=== PATIENT | male | born 1955 | race Caucasian/White ===

== ENCOUNTER → 2018-03-18 12:53 | Outpatient (CLI) | payer OTHER, SELFPAY ==
--- NOTE | 2018-03-18 12:59 | CA_ITS ---
PROCEDURE: 2-D M-mode and color Doppler study INDICATIONS FOR THE TEST: Chest pain COPD Heart Murmur Tobacco Smoking Palpitations Fatigue Syncope Edema HypertensionXDiabetes MellitusX Rheumatic Fever SOB GALICIA Obesity HyperlipidemiaX Family History HD Additional History CAD,CHRONIC AF TDS PATIENT INFORMATION HEIGHT: 71 WEIGHT:240 GENDER: Male B/P:151/92 2-D/M-MODE INTERPRETATION: 2-D MEASUREMENTS OBSERVED VALUES IN CMS Right Ventricular Dimension (RVDd) 2.8 Interventricular Septum (Thickness)(IVsd) .9 Left Ventricular Internal Dimensions(LVIDd) 5.6 Left Ventricular Posterior Wall (Thickness)(LVPWd) .9 Aortic Root 3.7 Aortic Cusp Separation 1.1 Left Atrial Dimensions (LAD) 2.6 2D 1. Technically very poor study, repeat study with better technique is recommended. 2. The left atrium is mildly enlarged, left ventricle is normal size, mild concentric left ventricular hypertrophy, visually estimated ejection fraction 55% with no regional wall motion abnormality. 3. The right atrium and right ventricle are normal size and contractility. 4. The aortic valve is thickened and calcified with moderate reduction in the leaflet mobility, 5. The mitral and tricuspid valve leaflets are minimally thickened and 6. The pulmonic valve is poorly visualized 7. No significant pericardial effusion noted. DOPPLER INTERROGATION: The maximum aortic out flow velocity is not accurately recorded study, morphologically there is moderate aortic stenosis, there is mild aortic insufficiency present, a repeat study with better Doppler technique is recommended to evaluate the severity of the aortic stenosis. There is mild tricuspid regurgitation noted, tricuspid regurgitant jet velocity is inadequate for calculation of the right ventricular systolic pressure. Diastolic parameters are inconclusive CONCLUSION: 1. Technically poor study repeat study with better Doppler technique is recommended. 2. Mildly enlarged left atrium, normal left ventricular size, mild concentric left ventricular hypertrophy, visually estimated ejection fraction 55% with no regional wall motion abnormality, diastolic parameters are inconclusive. 3. Thickened and calcified aortic valve with at least moderate aortic stenosis morphologically, this is not confirmed with Doppler Doppler interrogation, a repeat study with better technique is recommended. 4. Mild aortic, mild mitral and tricuspid regurgitation 5. No significant pericardial effusion noted.
== END ==
PROVIDERS: Visit Provider Urology
DX: Z01.818 Encounter for other preprocedural examination (principal)
CPT/HCPCS: 93306

== ENCOUNTER → 2018-10-09 14:06 | Outpatient (CLI) | payer OTHER, SELFPAY ==
[2018-10-09 17:56] LABS: Anion Gap 11.7 mEq/L (5-15); Blood Urea Nitrogen 19 mg/dL (7-18); Calcium 9.6 mg/dL (8.5-10.1); Carbon Dioxide 27 mmol/L (21.0-32.0); Chloride 104 mmol/L (98-107); Creatinine,Serum 1.57 mg/dL (0.70-1.30); Estimated Glomerular Filt Rate 45 ml/min (>60); GFR (African American) 55 ML/MIN (>60); Glucose 144 mg/dL (74-106); Potassium 4.7 mmoL/L (3.5-5.1); Sodium 138 mmol/L (136-145)
== END ==
PROVIDERS: Visit Provider Urology
DX: E11.9 Type 2 diabetes mellitus without complications (principal); E78.2 Mixed hyperlipidemia; G47.33 Obstructive sleep apnea (adult) (pediatric); I25.10 Atherosclerotic heart disease of native coronary artery without angina pectoris; I48.2 Chronic atrial fibrillation; I48.92 Unspecified atrial flutter; I49.3 Ventricular premature depolarization; I50.32 Chronic diastolic (congestive) heart failure; I50.9 Heart failure, unspecified; K21.9 Gastro-esophageal reflux disease without esophagitis; N18.2 Chronic kidney disease, stage 2 (mild); R06.09 Other forms of dyspnea; R07.89 Other chest pain; Z79.01 Long term (current) use of anticoagulants
CPT/HCPCS: 36415; 80048; 83880

== ENCOUNTER → 2018-10-17 10:23 | Outpatient (CLI) | payer OTHER, SELFPAY ==
--- NOTE | 2018-10-17 10:28 | CA_ITS ---
PROCEDURE: 2-D M-mode and color Doppler study INDICATIONS FOR THE TEST: Chest pain+ COPD Heart Murmur Tobacco Smokingex Palpitations Fatigue Syncope Edema Hypertension+Diabetes Mellitus+ Rheumatic Fever SOB=GALIICA+Obesity Hyperlipidemia+ Family History HD Additional History GERD,CHF,CHRONIC AF,CAD,CKD,DIANNA PATIENT INFORMATION HEIGHT: 71 WEIGHT:241 GENDER: Male B/P:170/101 2-D/M-MODE INTERPRETATION: 2-D MEASUREMENTS OBSERVED VALUES IN CMS Right Ventricular Dimension (RVDd) 1.9 Interventricular Septum (Thickness)(IVsd) 0.9 Left Ventricular Internal Dimensions(LVIDd) 4.7 Left Ventricular Posterior Wall (Thickness)(LVPWd) 1.3 Aortic Root 2.2 Aortic Cusp Separation 1.1 Left Atrial Dimensions (LAD) 4.1 2D 1. Left atrium is mildly enlarged, left ventricle is normal size, mild concentric left ventricular hypertrophy, visually estimated ejection fraction 55% with no regional wall motion abnormality. 2. The right atrium is mildly enlarged with normal contractility. 3. The aortic valve is thickened and calcified with mild resection the leaflet mobility. 4. The mitral and tricuspid valve leaflets are minimally thickened. 5. The pulmonic valve is poorly visualized. 6. No significant pericardial effusion noted. DOPPLER INTERROGATION: 1. The maximum aortic out flow velocity recorded study 3.2 m/s, resulting in a mean gradient across valve of 19 mmHg represents mild aortic stenosis, there is mild aortic insufficiency. 2. The mitral inflow velocities within normal range, there is no mitral stenosis, there is mild mitral regurgitation. Diastolic parameters are inconclusive. 3. Mild tricuspid regurgitation, tricuspid regurgitation jet velocity is inadequate for calculation of the right ventricular systolic pressure. CONCLUSION: 1. Mildly enlarged left atrium, normal left ventricular size, mild concentric left ventricular hypertrophy, visually estimated ejection fraction 55% with no regional wall motion abnormality, diastolic parameters are inconclusive. 2. Thickened and calcified aortic valve with mild aortic stenosis, there is mild aortic insufficiency. 3. Mild mitral and tricuspid regurgitation 4. No significant pericardial effusion noted.
--- NOTE | 2018-10-17 11:13 | NM_ITS ---
History:chest pain, short of breath, fatigue Procedure: Patient received a 0.4 mg of intravenous Lexiscan, resting heart rate 54 bpm, resting blood pressure 158/88, with Lexiscan maximum heart rate achieve was 81 bpm which is 85% of the maximum predicted heart rate and blood pressure was 120/73. With Lexiscan patient denied any complaint of chest pain. Electrocardiogram: Resting electrocardiogram showed sinus rhythm nonspecific ST-T changes, with Lexiscan there is less than 1.5mm ST segment depression noted from the baseline EKG. The EKG portion of the Lexiscan Myoview is nondiagnostic. Cardias Stress and Resting SPECT images: Cardias Stress and Resting SPECT images were obtained using technetium 99m Myoview 32.8 mCi stress and 10.55 mCi at rest. Gated SPECT further analysis of segmental wall motion and calculation of ejection fraction also done. Cardiac stress and resting SPECT show decreased tracer activity in the inferior wall which improves on the resting images suggestive of reversible ischemia, the computer derived ejection fraction is over 48% with Mild inferior wall hypokinesis, right ventricle is normal size and contractility. Conclusion: 1. The EKG portion of the Lexiscan Myoview is nondiagnostic. 2.Scintigraphic evidence of reversible ischemia involving the inferior wall is seen, computer derived ejection fraction is over 48% with segmental wall motion abnormality as described above. 3. Abnormal Lexiscan Myoview study.
--- NOTE | 2018-10-17 14:01 | HMH.ITSHM ---
Current Home Medications as stated by this patient Dane Stone or development representative. [] victoza pravastatin glimepride losartan asa xarelto
== END ==
PROVIDERS: PCP Family Medicine; Visit Provider Urology
DX: E11.9 Type 2 diabetes mellitus without complications (principal); E78.2 Mixed hyperlipidemia; I11.9 Hypertensive heart disease without heart failure; I25.10 Atherosclerotic heart disease of native coronary artery without angina pectoris; K21.9 Gastro-esophageal reflux disease without esophagitis; R06.09 Other forms of dyspnea; I50.32 Chronic diastolic (congestive) heart failure; R07.89 Other chest pain; Z79.84 Long term (current) use of oral hypoglycemic drugs
CPT/HCPCS: 78452; 93017; 93306; A9502; J2785

== ENCOUNTER → 2019-08-08 12:00 | Outpatient (CLI) | payer OTHER, SELFPAY ==
--- NOTE | 2019-08-08 | CT_ITS ---
PROCEDURE: CT CHEST WO CON CLINICAL INDICATION: Shortness of air, COPD COMPARISON: No exams were available for comparison TECHNIQUE: Axial images obtained with sagittal and coronal reformats. All CT scans at the facility use one or more dose reduction, viz: automated exposure control, ma/kV adjustment per patient size (including targeted exams where dose is matched to indication, i.e. head), or iterative reconstruction technique. FINDINGS: HEART AND MEDIASTINAL STRUCTURES: There are few small mediastinal lymph nodes. Coronary artery calcifications are present. There is a small hiatal hernia LUNGS AND PLEURAL SPACES: There is patchy ground-glass attenuation in the right upper lobe with some mild bronchial thickening and some tree-in-bud opacities. The remaining lungs are clear. No effusions. BONY STRUCTURES: There is an old right 7th and 8th rib fracture UPPER ABDOMEN: Hiatal hernia. Prior cholecystectomy ADDITIONAL FINDINGS: No other significant abnormalities. IMPRESSION: Bronchial thickening with ground-glass opacity and some tree-in-bud opacity in the right upper lobe consistent with bronchopneumonia Hiatal hernia Dictated by: Viktor Whitley MD 08/09/2019 12:55 Electronically signed by Viktor Whitley MD in [place] 08/09/2019 12:55
== END ==
PROVIDERS: PCP Family Medicine; Visit Provider Internal Medicine Sleep Medicine
DX: R06.09 Other forms of dyspnea (principal); J44.9 Chronic obstructive pulmonary disease, unspecified; G47.33 Obstructive sleep apnea (adult) (pediatric)
CPT/HCPCS: 71250; 94060; 94726; 94729

== ENCOUNTER → 2019-10-21 12:50 | Outpatient (CLI) | payer OTHER, SELFPAY ==
--- NOTE | 2019-10-21 13:35 | CA_ITS ---
APPROVED REPORT EXAM: Comprehensive 2D, Doppler, and color-flow Echocardiogram Braiding Machine Tender: Renu Humphrey CRT Ht: 5 ft 11 in Wt: 246lbs BSA: 2.30 BP: 120/84 mmHg Indications: Congestive Heart Failure, Shortness of Breath, Atrial Fibrillation, Diabetes, Obesity, Hyperlipidemia, Hypertension/HDD, GERD,, CKD, DIANNA 2D Dimensions LVOT 1.66 cm (M/F) 1.5-2.5 M-Mode Dimensions RVDd 3.54 cm (0.9-2.6) LVDd 4.54 cm (3.5-5.7) LVDs 2.93 cm (3.5-5.7) IVSd 0.97 cm (0.6-1.1) PWd 1.36 cm (0.6-1.1) EF (Teich) 65.00% FS 35.50% EDV (Teich) 94.40 mL ESV (Teich) 33.00 mL LV Diastology E/A Ratio 4.00 Aortic Valve LVOT Max 141.00 (70-110 cm/s) LVOT VTI 26.70 cm Mitral Valve MV A Velocity 31.00 (40-130 cm/s) Left Ventricle Left atrium is mildly enlarged, left ventricle is normal size, mild concentric left ventricular hypertrophy, visually estimated ejection fraction 55% with no regional wall motion abnormality, diastolic parameters are inconclusive. Right Ventricle Right atrium and right ventricle are normal size and contractility. Aortic Valve Aortic valve is thickened and calcified, there is restriction to leaflet mobility, the mean gradient across valve is 16 mmHg, the valve area is 1.2 cm??? represents moderate aortic stenosis, there is mild aortic insufficiency. Mitral Valve Mitral valve leaflets are minimally thickened, there is mild mitral regurgitation. Tricuspid Valve Tricuspid valve is grossly normal, there is mild tricuspid regurgitation, tricuspid regurgitation jet velocity is inadequate for calculation of the right ventricular systolic pressure. Pulmonic Valve Pulmonic valve is poorly visualized. Great Vessels Aortic root is normal size. Pericardium No significant pericardial effusion noted. Conclusion 1. Mildly enlarged left atrium, normal left ventricular size, mild concentric left ventricular hypertrophy, visually estimated ejection fraction 55% with no regional wall motion abnormality, diastolic parameters are inconclusive. 2. Thickened and calcified aortic valve with moderate aortic stenosis, the valve area is 1.2 cm???, there is mild aortic insufficiency. 3. Mild mitral and tricuspid regurgitation. 4. No significant pericardial effusion noted. Electronically signed by : Todd Gonzalez, 10/21/2019 18:34:20
[2019-10-24 11:20] LABS: QuantiFERON-TB Gold Plus Negative (Negative)
[2019-10-26 09:12] LABS: D001-IgE D pteronyssinus <0.10 kU/L (Class 0); D002-IgE D farinae <0.10 kU/L (Class 0); E001-IgE Cat Dander <0.10 kU/L (Class 0); E005-IgE Dog Dander <0.10 kU/L (Class 0); G002-IgE Bermuda Grass <0.10 kU/L (Class 0); G006-IgE Timothy Grass <0.10 kU/L (Class 0); I006-IgE Cockroach, German <0.10 kU/L (Class 0); Immunoglobulin E, Total 171 IU/mL (6-495); M001-IgE Penicillium chrysogen <0.10 kU/L (Class 0); M002-IgE Cladosporium herbarum <0.10 kU/L (Class 0); M003-IgE Aspergillus fumigatus <0.10 kU/L (Class 0); M006-IgE Alternaria alternata <0.10 kU/L (Class 0); T001-IgE Maple/Box Elder <0.10 kU/L (Class 0); T006-IgE Cedar, Mountain <0.10 kU/L (Class 0); T007-IgE Oak, White <0.10 kU/L (Class 0); T008-IgE Elm, American <0.10 kU/L (Class 0); T010-IgE Walnut <0.10 kU/L (Class 0); T011-IgE Maple Leaf Sycamore <0.10 kU/L (Class 0); T014-IgE Cottonwood <0.10 kU/L (Class 0); T015-IgE Ash, White <0.10 kU/L (Class 0); T022-IgE Pecan, Hickory <0.10 kU/L (Class 0); T070-IgE White Mulberry <0.10 kU/L (Class 0); W001-IgE Ragweed, Short <0.10 kU/L (Class 0); W011-IgE Thistle, Russian <0.10 kU/L (Class 0); W014-IgE Pigweed, Common <0.10 kU/L (Class 0); W016-IgE Rough Marshelder <0.10 kU/L (Class 0)
[2019-10-26 12:19] LABS: E072-IgE Mouse Urine <0.10 kU/L (Class 0)
== END ==
PROVIDERS: PCP Family Medicine; Visit Provider Internal Medicine Pulmonary Disease
DX: R06.00 Dyspnea, unspecified (principal); I50.30 Unspecified diastolic (congestive) heart failure
CPT/HCPCS: 36415; 82785; 86003; 86480; 93306

== ENCOUNTER → 2019-11-04 07:32 | Outpatient (CLI) | payer OTHER, SELFPAY ==
[2019-11-04 09:03] LABS: Coronavirus 19 IgG Antibody Negative (Negative); Coronavirus 19 IgM Antibody Negative (Negative)
== END ==
PROVIDERS: Visit Provider Internal Medicine Pulmonary Disease
DX: Z20.828 Contact with and (suspected) exposure to other viral communicable diseases (principal); R06.02 Shortness of breath; R93.89 Abnormal findings on diagnostic imaging of other specified body structures
CPT/HCPCS: 36415; 86328

== ENCOUNTER 2019-11-05 07:11 | Day surgery (SDC) | payer OTHER, SELFPAY ==
[2019-11-03 12:58] VITALS: BMI 34.2
[2019-11-05] VITALS (12 sets, daily range): BP systolic 111–142; BP diastolic 63–92; PULSE 44–61; RESP 12–18; TEMP 36.4–36.6; O2SAT 91–99
[2019-11-05 08:37] LABS: POC Glucose,Bedside 163 (70-110)
--- NOTE | 2019-11-05 11:48 | FL_ITS ---
PROCEDURE: FLUORO UP TO 1 HOUR CLINICAL INDICATION: BX Bronchoscopy biopsy COMPARISON: CT CT CHEST WO CON from 08/08/2019 FINDINGS: Two images are submitted with the C-arm showing bronchus could in place with a wire in the right mid upper chest. Fluoroscopy time: 1.9 minutes IMPRESSION: Status post bronchoscopy with fluoro guidance Dictated by: Viktor Whitley MD 11/05/2019 15:21 Viktor Whitley MD in [place] 11/05/2019 15:21
--- NOTE | 2019-11-05 11:52 | HMH.ANESCL ---
[facility] Anesthesia Checklist - Structural Data Admitted From: Home Planned Operative Procedure/s: bronchoscopy Consent for Planned Operative Procedure(s) Verified: Yes - Additional verifications Anesthesia Reactions: No Hx Blood Transfusions: No Blood Transfusion Reaction: No - Airway Assessment C-Spine Mobility Assessed: Yes TMJ Mobility Assessed: Yes Dentition: Poor Dentition - Neurological Assessment Level of Consciousness: Awake, Alert, Appropriate - Anesthesia Plan Anesthesia Risk discussed: Yes Anesthesia Plan: Verified ASA Class: III Anesthesia Type: General [facility] History I have reviewed the patient's past medical history: Yes Medical History: Reports:: Atrial Fibrillation, Congestive Heart Failure, Diabetes Mellitus Type 2, Gastroesophageal Reflux Disease(GERD), Hyperlipidemia, Hypertension Denies:: Cancer, Diabetes Mellitus Type 1, Internal Pacemaker, MRSA, Seizures *Have you ever received a pneumonia vaccine?: Yes *Have you received a flu vaccine this season?: Yes Other Medical History: Denies: Blood Transfusion Reaction Anesthesia experience/problems:: none Other Surgeries: Yes: No Previous Surgery, Cardiac Catheterization, Cholecystectomy, Hernia Repair, Sinus Surgery. No: Pacemaker Amputation: No Fractures: No - *Social History Last grade of school completed: High school graduate Smoking Status: Never smoker Alcohol Intake: never Substance Use Type: denies use *Occupational Status:: employed Housing: house Household Members: spouse *Travel in the last 8 weeks: None Family Hx:: Coronary Artery Disease, Hypertension
--- NOTE | 2019-11-05 11:53 | P.PN_ITS ---
[facility] Anesthesia Record Part I Intake, IV Amount: 1,000 Estimated blood loss (mL): 0 Urine output (mL): 0 Blood Pressure: 115/80 SaO2: 95 Pulse Rate: 58 Respiratory Rate: 12 Temperature: 97.7 F Patient is:: Drowsy, Stable Stable to PACU at:: 11:50
--- NOTE | 2019-11-05 13:40 | HMH.PROC ---
[facility] Procedure Note Procedure Note:: Bronchoscopy: Clean therapeutic bronchoscopy was advanced through the ET tube. Examined on both sides up to the subsegmental bronchi, appeared normal. Bronchoalveolar lavage was performed in the right upper lobe posterior segment. Total of 80 cc of NS instilled with a return of 25cc. Samples were sent for Bacterial Fungal and MILAD cultures along with cytopathology. Samples were not sent for Diff given inadequate return. Fluoroscopy guided transbronchial biopsies were also performed the right upper lobe, 8 pieces 8 biopsies were performed. 6 biopsy pieces were not sent for cytopathology and other 2 were sent for cultures. Patient tolerated the procedure well with no complications. We will follow the results and see the patient in clinic in 10 days.
--- NOTE | 2019-11-05 14:26 | HMH.ANESII ---
[facility] Anesthesia Record Part II Discharge Time: 12:20 Destination: Surgical Day Care (OP Surgery) PACU nurse assessment reviewed?: Yes Patient Condition:: Good Anesthesia Complications:: None Swallowing reflex intact?: Yes Cyanosis?: No Blood Pressure: 119/68 Pulse Rate: 48 Temperature: 97.9 F Mental Status: Alert & Oriented Pain level:: 0 Nausea and/or vomitting:: None Intake, IV Amount: 0
== END 2019-11-05 13:01 | disposition home or self-care (01) ==
LOC: OR 07:12
PROVIDERS: PCP Family Medicine; Visit Provider Internal Medicine Pulmonary Disease
PROC: (CPT 31624; principal; 2019-11-05 09:30)
DX: J47.1 Bronchiectasis with (acute) exacerbation (principal); J45.20 Mild intermittent asthma, uncomplicated; R93.89 Abnormal findings on diagnostic imaging of other specified body structures; I50.30 Unspecified diastolic (congestive) heart failure; I11.0 Hypertensive heart disease with heart failure; I48.91 Unspecified atrial fibrillation; E11.9 Type 2 diabetes mellitus without complications; E78.5 Hyperlipidemia, unspecified; K21.9 Gastro-esophageal reflux disease without esophagitis; Z90.49 Acquired absence of other specified parts of digestive tract; Z87.891 Personal history of nicotine dependence; Z82.49 Family history of ischemic heart disease and other diseases of the circulatory system
CPT/HCPCS: 31624; 76000; 82962; 87070; 87102; 87116; 87186; 87205; 87206; J2405; J2710

== ENCOUNTER → 2020-10-04 12:17 | Outpatient (CLI) | payer OTHER, SELFPAY | PROVIDERS: Visit Provider Internal Medicine Pulmonary Disease | DX: R06.09 Other forms of dyspnea (principal); J45.909 Unspecified asthma, uncomplicated | CPT/HCPCS: 94060; 94640; 94726; 94729 ==

== ENCOUNTER → 2021-04-04 11:04 | Outpatient (CLI) | payer OTHER, SELFPAY ==
--- NOTE | 2021-04-04 11:07 | CA_ITS ---
APPROVED REPORT EXAM: Comprehensive 2D, Doppler, and color-flow Echocardiogram Registered Radiologic Technologist: ROBIN Malone, RVS Ht: 5 ft 9 in Wt: 230lbs BSA: 2.19 BP: 159/95 mmHg Rhythm: Atrial Fibrillation Indications: Aortic stenosis, increased SOA & CP, CAD, CHF, Afib 2D Dimensions IVSd 1.04 cm M: 0.6-1.2 LVEF (Visual) 66.20 % PWd 1.03 cm M: 0.6 - 1.2 LA Volume 107.30 mL LVDd 5.00 cm M: 4.2 - 5.9 LA Volume Index [id number] mL/m2 (M/F) 16-34 LVDs 3.17 cm M: 2.5 - 4.0 Aortic Root 2.67 cm M: 3.1 - 3.7 Left Atrium 3.97 cm M: 3.0 - 4.0 LVOT 2.00 cm (M/F) 1.5-2.5 M-Mode Dimensions RVDd 2.97 cm (0.9-2.6) LA Diam 4.73 cm (1.9-4.0) LVDd 5.18 cm (3.5-5.7) Ao Diam 2.84 cm (2.0-3.7) LVDs 3.69 cm (3.5-5.7) IVSd 1.00 cm (0.6-1.1) PWd 0.96 cm (0.6-1.1) EF (Teich) 55.00% EPSs 1.53 cm FS 28.80% EDV (Teich) 128.40 mL TAPSE 1.73 (<1.7) ESV (Teich) 57.80 mL LV Diastology E Decel Time 130.00 (160-240 msec) E/A Ratio 1.44 MED E' 7.00 (< 7 cm/sec) MED A' 3.00 cm/s E'/MED E' Ratio 19.26 (>14) LAT E' 7.40 (<10 cm/sec) LAT A' 4.30 cm/s E/LAT E' Ratio 18.22 (>14) Aortic Valve LVOT Max 100.00 (70-110 cm/s) LVOT VTI 20.03 cm AoV Peak Alonso. 425.00 (50-130 cm/s) AI PHT 457.00 ms AO Peak GR. 72.40 mmHg AO Mean GR. 36.90 (<5 mmHg) AO VTI 81.63 (18-25 cm) KAYCEE (VTI) 0.77 (2.5-4.5 cm2) Mitral Valve MV A Velocity 93.00 (40-130 cm/s) E/A Ratio 1.44 MV Decel. Time 130.00 (160-240 ms) Pulmonary Valve PV Peak Velocity 88.00 (50-150 cm/s) Tricuspid Valve TR P. Velocity 347.00 cm/s RAP Estimate 10.00 mmHg RVSP 58.30 mmHg Left Ventricle Left atrium is mildly enlarged, left ventricle is normal size, mild concentric left ventricular hypertrophy, visually estimated ejection fraction 55% with no regional wall motion abnormality, diastolic parameters are inconclusive. Right Ventricle Right atrium and right ventricle are mildly enlarged with normal contractility. Aortic Valve Aortic valve is thickened and calcified with restriction in the leaflet mobility, the mean gradient across valve is 37 mmHg, valve area is 0.8 cm??? represents severe aortic stenosis, there is moderate aortic insufficiency. Mitral Valve Mitral valve is minimally thickened, there is no mitral stenosis, there is mild mitral regurgitation. Tricuspid Valve Tricuspid valve grossly normal, there is mild tricuspid regurgitation, calculated right ventricular systolic pressure is 46 mmHg. Pulmonic Valve Pulmonic valve is poorly visualized. Great Vessels Aortic root is normal size. Inferior vena cava is poorly visualized. Pericardium No significant pericardial effusion noted. Conclusion 1. Biatrial enlargement, normal left ventricular size, mild concentric left ventricular hypertrophy, visually estimated ejection fraction 55% with no regional wall motion abnormality, diastolic parameters are inconclusive. 2. Mildly enlarged right ventricle with normal contractility. 3. Thickened and calcified aortic valve with mean gradient across valve of 37 mmHg, valve area 0.8 cm??? presence of aortic stenosis, there is moderate aortic insufficiency. 4. Mild mitral and tricuspid regurgitation, calculated right ventricular systolic pressure is 46 mmHg. 5. No significant pericardial effusion noted. 6. Inferior vena cava is poorly visualized. Electronically signed by :
== END ==
PROVIDERS: Visit Provider Physician Assistant
DX: R06.00 Dyspnea, unspecified (principal); I15.8 Other secondary hypertension; I11.0 Hypertensive heart disease with heart failure; I25.10 Atherosclerotic heart disease of native coronary artery without angina pectoris; I35.0 Nonrheumatic aortic (valve) stenosis; I48.91 Unspecified atrial fibrillation; I50.30 Unspecified diastolic (congestive) heart failure; I50.9 Heart failure, unspecified; E78.5 Hyperlipidemia, unspecified; Z79.01 Long term (current) use of anticoagulants
CPT/HCPCS: 93306

== ENCOUNTER → 2021-04-13 10:38 | Outpatient (CLI) | payer OTHER, SELFPAY ==
[2021-04-13 11:30] LABS: Basophils # 0.2 K/mm3 (0-0.2); Eosinophils # 0.3 K/mm3 (0.0-0.4); Eosinophils % 4.1 % (0.1-12.0); Hematocrit 44.1 % (42.0-52.0); Hemoglobin 13.9 g/dL (14.1-18.0); Lymphocytes # 1.9 K/mm3 (0.7-4.5); Lymphocytes % 22.5 % (10-50); Mean Corpuscular HGB Conc 31.5 g/dL (31.8-35.4); Mean Corpuscular Volume 101.5 fl (80-94); Mean Platelet Volume 8.4 fl (7.4-10.4); Monocytes # 0.6 K/mm3 (0.1-1.0); Monocytes % 7.3 % (1.7-9.3); Neutrophils # 5.3 K/mm3 (1.8-7.8); Neutrophils % 64.1 % (37.0-80.0); Platelet Count 340 K/mm3 (142-424); Red Blood Count 4.35 M/mm3 (4.60-6.20); Red Cell Distribution Width 13.3 % (11.5-17.5); White Blood Count 8.3 K/mm3 (4.8-10.8)
[2021-04-13 11:59] LABS: Chloride 105 mmol/L (98-107); Potassium 4.2 mmoL/L (3.5-5.1); Sodium 134 mmol/L (136-145)
[2021-04-13 12:02] LABS: Anion Gap 10.2 mEq/L (5-15); Blood Urea Nitrogen 15 mg/dl (9-20); Carbon Dioxide 23 mmol/L (22.0-30.0); Estimated Glomerular Filt Rate 68 ml/min (>60); GFR (African American) 82 ML/MIN (>60)
[2021-04-13 12:03] LABS: Calcium 8.9 mg/dl (8.4-10.2); Glucose 182 mg/dl (74-100)
== END ==
PROVIDERS: Visit Provider Internal Medicine
DX: I25.10 Atherosclerotic heart disease of native coronary artery without angina pectoris (principal); I10 Essential (primary) hypertension; Z20.822 Contact with and (suspected) exposure to COVID-19
CPT/HCPCS: 36415; 80048; 85025; C9803; U0003; U0005

== ENCOUNTER → 2021-04-20 10:28 | Outpatient (CLI) | payer OTHER, SELFPAY | PROVIDERS: PCP Family Medicine; Visit Provider Internal Medicine | DX: Z01.812 Encounter for preprocedural laboratory examination (principal); Z11.52 Encounter for screening for COVID-19 | CPT/HCPCS: C9803; U0003; U0005 ==

== ENCOUNTER 2021-04-22 06:55 | Day surgery (SDC) | payer OTHER, SELFPAY ==
[2021-04-22] VITALS (16 sets, daily range): BP systolic 93–168; BP diastolic 55–99; PULSE 71–96; RESP 15–19; O2SAT 91–99; BMI 34.1
--- NOTE | 2021-04-22 | IR_ITS ---
APPROVED REPORT Patient Location: Outpatient Director Investment Banking: ELVIA Simmons RT (R) PROCEDURES Right heart catheterization Selective coronary angiogram INDICATION Pulmonary hypertension, Atrial fibrillation, Worsening dyspnea, Informed consent was obtained prior to the procedure. COMPLICATIONS None Estimated Blood Loss: Less than 10 ML TECHNIQUE One percent lidocaine was used to anesthetize the right anterior aspect of the right wrist. The right radial artery was accessed via the Seldinger technique and a 6 Cameroonian hydrophilic sheath was placed in the right radial artery. Following this one percent lidocaine was used to anesthetize the right anterior aspect of the right neck. The right internal jugular vein was accessed via the Seldinger technique and a 7 Cam[place]onian sheath was placed in the right internal jugular vein. Following this an arterial cocktail was administered using 5000U heparin, 2.5 mg verapamil, 1mg Lidocaine and 800mcg nitroglycerin into the right radial sheath. A trap catheter was used to perform left heart catheterization left ventriculogram and selective coronary angiography while a [place]-Chris catheter was used to perform right heart catheterization. Saturations were obtained in the pulmonary artery and right atrium. At the end of the procedure the arterial sheath was removed good hemostasis was achieved using Traclet band. Patient was transferred to the postop holding area in stable condition for venous sheath removal. ANGIOGRAPHIC RESULTS The left main artery Normal The left anterior descending artery Mild 10% diffuse luminal irregularities The circumflex artery Large dominant with mild diffuse 10% luminal irregularities The right coronary artery Vestigial normal The YIN ventriculogram reveals Not performed The left ventricular end-diastolic pressure Not measured Right atrial pressure 12 mmHg Right ventricular pressure 50/12 mmHg Pulmonary artery pressure 52/30 mmHg Pulmonary occlusion pressure 26 mmHg Right atrial saturation 72% Pulmonary saturation 72% IMPRESSION Mild nonflow limiting coronary disease Moderate to severe pulmonary hypertension Elevated left-sided filling pressures consistent with diastolic dysfunction PLAN 1. Increase diuretics 2. Consideration [address] place CardioMEM Electronically signed by : Jonathan Fontana MD 04/22/2021 09:47:47
--- NOTE | 2021-04-22 07:04 | CA_ITS ---
APPROVED REPORT EXAM: Comprehensive 2D, Doppler, and color-flow Echocardiogram Aircraft Maintenance Technician: Natacha Pacheco RVT Ht: 5 ft 9 in Wt: 231lbs BSA: 2.20 BP: 141/81 mmHg Indications: SEVERE ,SOA,A-FIB Procedure After obtaining informed consent, patient underwent transesophageal echo in the Meter Readers Supervisor. Type of Sedation : Conscious Sedation Sedation was administered by Andres Medina C.R.N.A. Transesophageal probe was inserted and advanced into esophagus without difficulty by Dr. Julissa Flores. The YVETTE was performed without complications. Throughout the procedure, the blood pressure, pulse oximetry, cardiac rhythm, and rate were monitored. The patient tolerated the procedure without adverse effects. Recovery from conscious sedation was uneventful and vital signs were stable. Left Ventricle Left ventricle is normal size, mild concentric left ventricular hypertrophy, estimated ejection fraction 55% with no regional wall motion abnormality. Right Ventricle Right ventricle is normal size and contractility. Atria Left atrium is moderately enlarged, left atrial appendage free of thrombus, there is poor appendage flow by spectral Doppler. Right atrium is normal size. Intra-atrial septum is intact, there is no flow across the interatrial septum. Agitated saline contrast study did not identify intracardiac shunt. Aortic Valve Aortic valve is thickened and calcified with severe restriction to leaflet mobility, there is severe aortic stenosis, there is moderate aortic insufficiency. Mitral Valve Mitral valve is grossly normal, there is mild mitral regurgitation. Tricuspid Valve Tricuspid valve grossly normal, there is mild tricuspid regurgitation. Pulmonic Valve Pulmonic valve is grossly normal. Great Vessels Aortic root and ascending aorta is normal size. Nonmobile atheromatous plaque seen in the descending thoracic aorta. Inferior vena cava is not visualized Pericardium No significant pericardial effusion noted. Conclusion 1. Moderately enlarged left atrium, normal left ventricular size, mild concentric left ventricular hypertrophy, visually estimated ejection fraction 55% in the obtained views with no regional wall motion abnormality. 2. Thickened and calcified aortic valve with severe aortic stenosis, there is moderate aortic insufficiency. 3. Mild mitral and tricuspid regurgitation. 4. No significant pericardial effusion noted. Electronically signed by : Todd Gonzalez MD 04/22/2021 09:18:25
--- NOTE | 2021-04-22 08:07 | HMH.ANESCL ---
[facility] Anesthesia Checklist - Patient Identification Patient Identification: Arm Band, Verbal (Name & ) - Structural Data Admitted From: Home Planned Operative Procedure/s: YVETTE Consent for Planned Operative Procedure(s) Verified: Yes Verified Documents: Surgical Consent - NPO Status Verified Time NPO: 00:00 - Additional verifications Anesthesia Reactions: No Hx Blood Transfusions: No Blood Transfusion Reaction: No - Airway Assessment C-Spine Mobility Assessed: Yes TMJ Mobility Assessed: Yes Dentition: Good Dentition - Neurological Assessment Level of Consciousness: Awake, Alert, Appropriate - Anesthesia Plan Anesthesia Risk discussed: Yes ASA Class: III Anesthesia Type: MAC [facility] History I have reviewed the patient's past medical history: Yes Medical History: Reports:: Atrial Fibrillation, Congestive Heart Failure, Coronary Artery Disease, Diabetes Mellitus Type 2, Gastroesophageal Reflux Disease(GERD), Hyperlipidemia, Hypertension Denies:: Cancer, Diabetes Mellitus Type 1, Internal Pacemaker, MRSA, Seizures *Have you ever received a pneumonia vaccine?: No *Have you received a flu vaccine this season?: No Other Medical History: Denies: Blood Transfusion Reaction Anesthesia experience/problems:: none Other Surgeries: Yes: No Previous Surgery, Cardiac Catheterization, Cholecystectomy, Hernia Repair, Sinus Surgery. No: Pacemaker Amputation: No Fractures: No - *Social History Smoking Status: Never smoker Alcohol Intake: never Substance Use Type: denies use *Occupational Status:: employed Housing: house Household Members: spouse *Travel in the last 8 weeks: None Family Hx:: Coronary Artery Disease, Hypertension
--- NOTE | 2021-04-22 08:08 | SUR.PREOP ---
FOR PREOP CHARTING REFER TO YVETTE.
[2021-04-22 10:03] LABS: CATHL Arterial O2 SAT 72.9 % (90-100); CATHL Venous O2 SAT 72.6 % (75-80)
== END 2021-04-22 13:06 | disposition home or self-care (01) ==
LOC: CATHLAB 06:56
PROVIDERS: Internal Medicine; Visit Provider Internal Medicine Cardiovascular Disease
DX: I50.32 Chronic diastolic (congestive) heart failure (principal); E11.9 Type 2 diabetes mellitus without complications; Z79.84 Long term (current) use of oral hypoglycemic drugs; Z79.899 Other long term (current) drug therapy; I27.20 Pulmonary hypertension, unspecified; I48.20 Chronic atrial fibrillation, unspecified; Z79.01 Long term (current) use of anticoagulants; I11.0 Hypertensive heart disease with heart failure; Z82.49 Family history of ischemic heart disease and other diseases of the circulatory system; I35.0 Nonrheumatic aortic (valve) stenosis
CPT/HCPCS: 82810; 93312; 93451; 99152; 99153; C1725; C1760; C1769; C1894; J1644; Q9967